=== PATIENT | female | born 1950 | race Caucasian/White ===

== ENCOUNTER 2020-11-14 14:36 | Emergency (ER) | payer MEDICARE ==
--- NOTE | 2020-11-14 14:57 | EDM.PDOC ---
ED HPI GENERAL MEDICAL PROBLEM - General Chief Complaint: General Stated Complaint: SEEING THINGS POST CRANIAL SURGERY Time Seen by Provider: 11/14/20 14:57 - History of Present Illness INITIAL COMMENTS - FREE TEXT/NARRATIVE: 69-year-old female presents the emergency room with somewhat unusual symptoms post craniotomy. 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 Today she has done well yesterday was the last day of her muscle relaxant however she was seen little stick figures running around in her vision field. This improved yesterday morning and went on for couple of days prior. She is a lert and oriented. Patient has not had any fevers or chills. Patient has minimal discomfort at this time and thinks otherwise she is doing well she has significant lip drooping on the right side this was to be expected she is also having difficulty blinking her right eye so she keeps this patched. 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 recent surgery NITROGLYCERIN NEUTRALIZER History: Reports: Neurological History: Reports: Other (See Below) Other Neuro History: craniotomy on 11-06-20 Oncologic (Cancer) History: Reports: Other (See Below) 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 Denies: Vision Change Respiratory: Reports: No Symptoms Cardiovascular: Reports: No Symptoms GI/Abdominal: Reports: No Symptoms : Reports: No Symptoms Musculoskeletal: Reports: No Symptoms Skin: Reports: No Symptoms Psychiatric: Reports: Hallucinations Hematologic/Lymphatic: Reports: No Symptoms Immunologic: Reports: No Symptoms ED EXAM, GENERAL - Physical Exam Exam: See Below Exam Limited By: No Limitations General Appearance: Alert, No Apparent Distress Eye Exam: Right Eye: Other (Cannot blink her control her eyelid on the right), Bilateral Eye: EOMI Ears: Normal External Exam, Normal Canal, Other (She has significant ecchymosis developing at her incision posterior to the ear) Nose: Normal Inspection Throat/Mouth: Normal Inspection, Other (Muscle control is altered on the right side) Head: Other (Ecchymosis around the right posterior ear) Neck: Normal Inspection, Supple, Non-Tender Respiratory/Chest: No Respiratory Distress, Lungs Clear, Normal Breath Sounds Cardiovascular: Regular Rate, Rhythm, No Edema, No Murmur GI/Abdominal: Normal Bowel Sounds, Soft, Non-Tender, Other (Graft site has minimal drainage mostly serous no redness warmth or foul smell) Back Exam: Normal Inspection. No: CVA Tenderness (L), CVA Tenderness (R) Extremities: Normal Inspection Neurological: Alert, Oriented, Normal Cognition Psychiatric: Normal Affect, Normal Mood Skin Exam: Warm, Dry, Intact, Other (Ecchymosis at or near surgical sites nothing unexpected) Course - Vital Signs Last Recorded V/S: Last Vital Signs Temp 35.8 C L 11/14/20 14:46 Pulse 50 L 11/14/20 14:46 Resp 16 11/14/20 14:46 BP 160/95 H 11/14/20 14:46 Pulse Ox 94 L 11/14/20 14:46 - Re-Assessments/Exams Free Text/Narrative Re-Assessment/Exam: 11/14/20 16:03 This situation is somewhat puzzling it does not sound structural especially with minimal if any pain. I did discuss situation with metal bonding helper neurosurgeon and [place] in [place] who is covering from the patient's neurosurgeon Dr. Ruiz Mccann. The on-call neurosurgeon does not believe imaging will be helpful as she does not believe this is structural. The patient is not running a fever I do not think laboratory evaluation would be beneficial in this situation. After thorough discussion with , we determined imaging is of no benefit lab work is probably of no benefit. I did discuss this thought process with the patient and her spouse and they are in agreement to this they are quite comfortable going home. And agree this is probably due to her muscle relaxant therapy. Departure - Departure Time of Disposition: 16:06 Disposition: Home, Self-Care 01 Clinical Impression: Visual hallucinations, Medication side effect - Discharge Information Referrals: Zuleyma Pierre [facility]ER [Primary Care Provider] - Forms: ED Department Discharge Additional Instructions: Return to the emergency room with any questions problems or concerning symptoms. Follow-up with your regular healthcare provider as scheduled follow-up with neurosurgery as scheduled. Sepsis Event Note (ED) - Evaluation Sepsis Screening Result: No Definite Risk - Focused Exam Vital Signs: Vital Signs Temp Pulse Resp BP Pulse Ox 11/14/20 14:46 35.8 C L 50 L 16 160/95 H 94 L
== END 2020-11-14 16:16 | disposition home or self-care (01) ==
LOC: JD.ED 14:36
DX: R44.1 Visual hallucinations (principal); T50.905A Adverse effect of unspecified drugs, medicaments and biological substances, initial encounter
CPT/HCPCS: 99283

== ENCOUNTER 2024-03-08 12:30 | Day surgery (SDC) | payer MEDICARE, OTHER ==
[2024-03-08] MEDS: Polymyxin B/Trimethoprim 10 ML Bottle EYELF SCH (13:53)
[2024-03-08] MEDS: Brimonidine 0.2% Ophth Soln 5 ML Bottle EYELF SCH (13:56)
[2024-03-08] MEDS: Phenylephrine 2.5% Ophth Soln 2 ML Bot EYELF SCH (14:01)
[2024-03-08] MEDS: Tropicamide 1% Ophth Soln 3 ML Bottle EYELF SCH (14:06)
[2024-03-08] MEDS: Tetracaine HCl/PF 0.5% 4 ML Bottle EYEBOTH SCH (15:00)
[2024-03-08] MEDS: Lidocaine 1% PF 2 ML SDV INJECT SCH (15:16)
[2024-03-08] MEDS: Cefuroxime 10 MG/ML SYRINGE EYELF SCH (15:28)
[2024-03-08] MEDS: Pilocarpine 4% Ophth Soln 15 ML Bot EYELF SCH (15:29)
== END 2024-03-08 15:39 | disposition home or self-care (01) ==
LOC: JD.SDS 12:30
PROVIDERS: ATTEND Ophthalmology
DX: H26.9 Unspecified cataract (principal); H25.812 Combined forms of age-related cataract, left eye; G51.0 Bell's palsy; H43.813 Vitreous degeneration, bilateral; H35.413 Lattice degeneration of retina, bilateral; E78.2 Mixed hyperlipidemia; Z79.899 Other long term (current) drug therapy
CPT/HCPCS: 66984; J0697; A9270-GY; J3490

== ENCOUNTER 2025-01-29 06:42 | Day surgery (SDC) | payer MEDICARE ==
[~2025-01-29 06:42] MED LIST: Sodium Chloride 0.9% 10 ML Syringe FLUSH PRN; Sodium Chloride 0.9% 10 ML Syringe FLUSH SCH
[2025-01-29] MEDS ORDERED: Propofol 200 MG/20 ML SDV ONE (06:58)
[2025-01-29] MEDS ORDERED: propofoL 500 MG/50 ML 50 ML ONE (06:59)
[2025-01-29] MEDS: Lactated Ringers 1,000 ML IV SCH (07:05)
== END 2025-01-29 08:40 | disposition home or self-care (01) ==
LOC: JD.SDS 06:42
PROVIDERS: ATTEND Surgery
DX: D12.5 Benign neoplasm of sigmoid colon (principal); K57.30 Diverticulosis of large intestine without perforation or abscess without bleeding; K57.32 Diverticulitis of large intestine without perforation or abscess without bleeding; E03.9 Hypothyroidism, unspecified; E78.5 Hyperlipidemia, unspecified; F32.A Depression, unspecified; Z79.899 Other long term (current) drug therapy
CPT/HCPCS: 45385; J2704; J7120